=== PATIENT | male | born 1950 | race Caucasian/White ===

== ENCOUNTER → 2021-08-14 15:35 | Outpatient (CLI) | payer OTHER, SELFPAY ==
[2021-08-14 16:19] LABS: COVID19 -Nasal RAPID POSITIVE (Negative)
== END ==
PROVIDERS: Referring Provider Nurse Practitioner Critical Care Medicine; Visit Provider Nurse Practitioner Critical Care Medicine
DX: Z20.822 Contact with and (suspected) exposure to COVID-19 (principal)
CPT/HCPCS: 87635

== ENCOUNTER 2021-09-29 10:30 | Outpatient (RCR) | payer OTHER, SELFPAY ==
--- NOTE | 2021-09-14 16:32 | PT.OIE ---
Current Diagnoses Other abnormalities of gait and mobility (09/14/21) Nondisplaced osteochondral fracture of right patella, sequela (09/14/21) History of falling (09/14/21) Visit Care Team Role Provider Type Rafael Conde MD Family Provider Non-Staff Primary Care Provider Specialty: Internal Medicine Address: [address] [place] [address], [id number] Email: Obie Hercules MD Attending Provider Physician Referring Provider Specialty: Orthopedic Surgery Address: [address] [place] [address], [id number] Email: [email or web address] [facility] Initial Evaluation PT-OP-A Visit Information Start: 09/13/21 15:34 Freq: Status: Active Protocol: Document 09/14/21 10:30 AMB (Rec: 09/14/21 16:00 AMB [id number]) Out-Patient Physical Therapy Visit Information Visit Information Visit Type Initial Evaluation Visit Start Time 10:30 Visit Stop Time 11:15 Total Visit Minutes 45 Visit Number 1 PT-OP-B Current Condition Start: 09/13/21 15:34 Freq: Status: Active Protocol: Document 09/14/21 10:30 AMB (Rec: 09/14/21 10:43 AMB [id number]) Current Condition History of Current Condition Onset Date June Current Complaints R knee pain History of Current Condition Fractured patella in June in a fall in the garage, even before than was having difficulty with walking and with stairs. 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 Never actually fell because of the pain pre fracture but couldn't do stairs because the knee wasn't dependable. Right now doesn't have stairs, moving into another house in 3 weeks that will have stairs but can go up and down with step to gait and a railing per his report. Swelling is worse in the R leg. 1 fall in the last 6 months. Fearful of falling, not spinning but feels as if he could fall. Does having tingling in bilateral feet. Reports shortness of breath. Treatment Goals Patient/Caregiver Goals Would like to be able to get into a boat and go fishing, walk more (SOB limits), ability to walk on uneven terrain Prior Functional Status Baseline Function- ADL's Modified Independent Baseline Function- Mobility Modified Independent Current Functional Impairments (Reported) Functional Limitations- ADL's Unable to do stairs, walk for more than a couple minutes, difficulty with balance Personal Factors Other Personal Factors That May Effect Bilateral RAIZA, liver disease Therapy/Recovery with ascites and swelling in right leg?, hx polio as a child, shortness of breath PT-OP-C Subjective Start: 09/13/21 15:34 Freq: Status: Active Protocol: Document 09/14/21 10:30 AMB (Rec: 09/14/21 16:19 AMB [id number]) Patient Questionnaires Lower Extremity Functional Scale LEFS Score 37 LEFS Impairment 40 to 59% Impaired (Score 32- 47) OP-PT Pain Assessment Comments Pain Comments 5/10 anterior R knee just underneath patella PT-OP-D Balance Start: 09/13/21 15:34 Freq: Status: Active Protocol: Document 09/14/21 10:30 AMB (Rec: 09/14/21 16:19 AMB [id number]) Balance Tests mCTSIB mCTSIB Position 1 30 sec mCTSIB Position 2 increased ankle sway but no LOB mCTSIB Position 3 increased ankle sway but no LOB mCTSIB Position 4 increased ankle/hip sway PT-OP-G Mobility & Gait Start: 09/13/21 15:34 Freq: Status: Active Protocol: Document 09/14/21 10:30 AMB (Rec: 09/14/21 16:32 AMB [id number]) OP Gait Assessment Comments Gait Comments Pt ambulates without AD with antalgic gait, tends to avoid knee flexion and toe off on the right. PT-OP-J Posture/Palpation/Skin Start: 09/13/21 15:34 Freq: Status: Active Protocol: Document 09/14/21 10:30 AMB (Rec: 09/14/21 16:19 AMB [id number]) Palpation Assessment Location One Palpation Location R knee Palpation Findings Edema Palpation Details Denies tenderness with palpation over patella or popliteal fossa, no pitting edema, but skin tight with swelling R>L LE PT-OP-K Range of Motion Start: 09/13/21 15:34 Freq: Status: Active Protocol: Document 09/14/21 10:30 AMB (Rec: 09/14/21 16:19 AMB [id number]) Knee Goniometric Range of Motion Knee Right Patient Position Supine Flexion Passive (degrees) 110 Extension Active (degrees) 5 PT-OP-M Strength Start: 09/13/21 15:34 Freq: Status: Active Protocol: Document 09/14/21 10:30 AMB (Rec: 09/14/21 16:19 AMB [id number]) Hip Strength Hip Manual Muscle Testing Right Flexion (L2) 4 Good Extension (S1) 4 Good Abduction 4 Good Left Flexion (L2) 4+ Good+ Extension (S1) 4+ Good+ Abduction 4+ Good+ Knee Strength Knee Manual Muscle Testing Right Flexion (S2) 4- Good- Left Flexion (S2) 4+ Good+ Extension (L3) 4+ Good+ Ankle/Foot Strength Ankle and Foot Manual Muscle Testing Right Dorsiflexion (L4) 4 Good Plantarflexion (S1) 4 Good Left Dorsiflexion (L4) 4 Good Plantarflexion (S1) 4 Good PT-OP-Q Treatments Start: 09/13/21 15:34 Freq: Status: Active Protocol: Document 09/14/21 10:30 AMB (Rec: 09/14/21 16:21 AMB [id number]) Therapeutic Exercises Supine Exercises SLR Side right Reps/Minutes 2x10 Comments HEP Standing Exercises wall squat Comments even very small did increase R knee pain Neuro Re-Education Treatment Balance Activities 1 Comments NBOS EC working on really feeling feet PT-OP-T Assessment and Plan Start: 09/13/21 15:34 Freq: Status: Active Protocol: Document 09/14/21 10:30 AMB (Rec: 09/14/21 16:30 AMB [id number]) Physical Therapy Assessment Rehab Potential Rehabilitation Potential Good Evaluation Complexity Number of Personal Factors/Comorbidities 3 or More Number of Body Systems Impaired 4 or More Clinical Presentation at Evaluation Evolving Impairments Impairments Activity Tolerance,Edema, Functional Activities,Gait, Pain,ROM,Strength Goals Three Impairment HEP Short Term Goal (STG) Federico will be independent with both a land and aquatic HEP. STG Duration 4 weeks Two Impairment Pain Short Term Goal (STG) Federico will ascend 1 flight of stairs with a railing without knee pain or a feeling of the knee giving way. STG Duration 4 weeks One Impairment Balance Short Term Goal (STG) Federico will balance on foam with eyes closed without fear of falling. STG Duration 4 weeks Correction Goal (LTG) Federico will ambulate over grass/ grass for 2 minutes without fear of falling. LTG Duration 8 weeks Assessment Summary Assessment Federico attends physical therapy 2 + months s/p R patellar fracture. His medical comorbities make his physical therapy case more complex. He has swelling in his legs and tingling in his feet that impair his balance. He has difficulty with walking due to shortness of breath from advanced liver disease. He was unable to ascend stairs normally even before his fracture due to weakness in the right leg. He will benefit from physical therapy to improve his right leg strength, manage his pain, and decrease his fall risk. His high copay will likely be a barrier for him. Physical Therapy Plan Frequency and Duration Frequency of Treatment 2x/Week Duration of Treatment 8 weeks Plan of Care Start Date 09/14/21 Plan of Care End Date 11/09/21 Therapeutic Interventions Therapeutic Interventions Aquatic Therapy,Balance Training,Gait Training,Home Exercise Program,Lymphedema Management,Manual Therapy, Neuromuscular Re-education, Self-Care/Home Management, Therapeutic Activities, Therapeutic Exercises Modalities Cold Pack/Ice Massage,Electric Stimulation,Hot Packs Next Visit Focus/Plan Next Note Type Treatment Note Next Visit Plan Begin instruction in HEP
--- NOTE | 2021-09-14 16:33 | PT.OPPOC ---
Physical, Occupational & Speech Therapy At [facility] Current Diagnoses Other abnormalities of gait and mobility (09/14/21) Nondisplaced osteochondral fracture of right patella, sequela (09/14/21) History of falling (09/14/21) Visit Care Team Role Provider Type Rafael Conde MD Family Provider Non-Staff Primary Care Provider Specialty: Internal Medicine Address: [address] [place] [address], [id number] Email: Obie Hercules MD Attending Provider Physician Referring Provider Specialty: Orthopedic Surgery Address: [address] [place] [address], [address] Email: [email or web address] Plan Of Care PT-OP-T Assessment and Plan Start: 09/13/21 15:34 Freq: Status: Active Protocol: Document 09/14/21 10:30 AMB (Rec: 09/14/21 16:30 [facility] [id number]) Physical Therapy Assessment Rehab Potential Rehabilitation Potential Good Evaluation Complexity Number of Personal Factors/Comorbidities 3 or More Number of Body Systems Impaired 4 or More Clinical Presentation at Evaluation Evolving Impairments Impairments Activity Tolerance,Edema, Functional Activities,Gait, Pain,ROM,Strength Goals Three Impairment HEP Short Term Goal (STG) Federico will be independent with both a land and aquatic HEP. STG Duration 4 weeks Two Impairment Pain Short Term Goal (STG) Federico will ascend 1 flight of stairs with a railing without knee pain or a feeling of the knee giving way. STG Duration 4 weeks One Impairment Balance Short Term Goal (STG) Federico will balance on foam with eyes closed without fear of falling. STG Duration 4 weeks [facility] Goal (LTG) Federico will ambulate over grass/ grass for 2 minutes without fear of falling. LTG Duration 8 weeks Assessment Summary Assessment Federico attends physical therapy 2 + months s/p R patellar fracture. His medical comorbities make his physical therapy case more complex. He has swelling in his legs and tingling in his feet that impair his balance. He has difficulty with walking due to shortness of breath from advanced liver disease. He was unable to ascend stairs normally even before his fracture due to weakness in the right leg. He will benefit from physical therapy to improve his right leg strength, manage his pain, and decrease his fall risk. His high copay will likely be a barrier for him. Physical Therapy Plan Frequency and Duration Frequency of Treatment 2x/Week Duration of Treatment 8 weeks Plan of Care Start Date 09/14/21 Plan of Care End Date 11/09/21 Therapeutic Interventions Therapeutic Interventions Aquatic Therapy,Balance Training,Gait Training,Home Exercise Program,Lymphedema Management,Manual Therapy, Neuromuscular Re-education, Self-Care/Home Management, Therapeutic Activities, Therapeutic Exercises Modalities Cold Pack/Ice Massage,Electric Stimulation,Hot Packs Next Visit Focus/Plan Next Note Type Treatment Note Next Visit Plan Begin instruction in HEP Plan of Care Dates Plan of Care Start Date 09/14/21 Plan of Care End Date 11/09/21 Electronically Signed by: Keke Frederick, PT 09/14/21 [id number] Please Sign and Return: I have reviewed this Plan of Care and certify that the skilled therapy services above are required to meet the patient?s needs. Physician Signature Date Printed Name and Credentials Clinical Instructor Signature Printed Name and Credentials
--- NOTE | 2021-09-20 14:09 | PT.OTN ---
Current Diagnoses Other abnormalities of gait and mobility (09/20/21) Nondisplaced osteochondral fracture of right patella, sequela (09/20/21) History of falling (09/20/21) Physical Therapy Treatment Note PT-OP-A Visit Information Start: 09/13/21 15:34 Freq: Status: Active Protocol: Document 09/20/21 10:30 AMB (Rec: 09/20/21 11:17 AMB [id number]) Out-Patient Physical Therapy Visit Information Visit Information Visit Type Treatment Note Visit Start Time 10:30 Visit Stop Time 11:15 Total Visit Minutes 45 Visit Number 2 PT-OP-B Current Condition Start: 09/13/21 15:34 Freq: Status: Active Protocol: Document 09/14/21 10:30 AMB (Rec: 09/14/21 10:43 AMB [id number]) Current Condition History of Current Condition Onset Date June Current Complaints R knee pain History of Current Condition Fractured patella in June in a fall in the garage, even before than was having difficulty with walking and with stairs. 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 Never actually fell because of the pain pre fracture but couldn't do stairs because the knee wasn't dependable. Right now doesn't have stairs, moving into another house in 3 weeks that will have stairs but can go up and down with step to gait and a railing per his report. Swelling is worse in the R leg. 1 fall in the last 6 months. Fearful of falling, not spinning but feels as if he could fall. Does having tingling in bilateral feet. Reports shortness of breath. Treatment Goals Patient/Caregiver Goals Would like to be able to get into a boat and go fishing, walk more (SOB limits), ability to walk on uneven terrain Prior Functional Status Baseline Function- ADL's Modified Independent Baseline Function- Mobility Modified Independent Current Functional Impairments (Reported) Functional Limitations- ADL's Unable to do stairs, walk for more than a couple minutes, difficulty with balance Personal Factors Other Personal Factors That May Effect Bilateral RAIZA, liver disease Therapy/Recovery with ascites and swelling in right leg?, hx polio as a child, shortness of breath PT-OP-C Subjective Start: 09/13/21 15:34 Freq: Status: Active Protocol: Document 09/20/21 10:30 AMB (Rec: 09/20/21 14:09 AMB [id number]) OP-PT Subjective Patient Comments Patient Comments Pt states leg pain is better since he has stopped drinking as much water. PT-OP-D Balance Start: 09/13/21 15:34 Freq: Status: Active Protocol: Document 09/14/21 10:30 AMB (Rec: 09/14/21 16:19 AMB [id number]) Balance Tests mCTSIB mCTSIB Position 1 30 sec mCTSIB Position 2 increased ankle sway but no LOB mCTSIB Position 3 increased ankle sway but no LOB mCTSIB Position 4 increased ankle/hip sway PT-OP-G Mobility & Gait Start: 09/13/21 15:34 Freq: Status: Active Protocol: Document 09/14/21 10:30 AMB (Rec: 09/14/21 16:32 AMB [id number]) OP Gait Assessment Comments Gait Comments Pt ambulates without AD with antalgic gait, tends to avoid knee flexion and toe off on the right. PT-OP-J Posture/Palpation/Skin Start: 09/13/21 15:34 Freq: Status: Active Protocol: Document 09/14/21 10:30 AMB (Rec: 09/14/21 16:19 AMB [id number]) Palpation Assessment Location One Palpation Location R knee Palpation Findings Edema Palpation Details Denies tenderness with palpation over patella or popliteal fossa, no pitting edema, but skin tight with swelling R>L LE PT-OP-K Range of Motion Start: 09/13/21 15:34 Freq: Status: Active Protocol: Document 09/14/21 10:30 AMB (Rec: 09/14/21 16:19 AMB [id number]) Knee Goniometric Range of Motion Knee Right Patient Position Supine Flexion Passive (degrees) 110 Extension Active (degrees) 5 PT-OP-M Strength Start: 09/13/21 15:34 Freq: Status: Active Protocol: Document 09/14/21 10:30 AMB (Rec: 09/14/21 16:19 AMB [id number]) Hip Strength Hip Manual Muscle Testing Right Flexion (L2) 4 Good Extension (S1) 4 Good Abduction 4 Good Left Flexion (L2) 4+ Good+ Extension (S1) 4+ Good+ Abduction 4+ Good+ Knee Strength Knee Manual Muscle Testing Right Flexion (S2) 4- Good- Left Flexion (S2) 4+ Good+ Extension (L3) 4+ Good+ Ankle/Foot Strength Ankle and Foot Manual Muscle Testing Right Dorsiflexion (L4) 4 Good Plantarflexion (S1) 4 Good Left Dorsiflexion (L4) 4 Good Plantarflexion (S1) 4 Good PT-OP-Q Treatments Start: 09/13/21 15:34 Freq: Status: Active Protocol: Document 09/20/21 10:30 AMB (Rec: 09/20/21 14:08 AMB [id number]) Cardio Equipment Recumbent Elliptical (Biodex) Duration (Minutes) 6 Resistance 4 Other UE/LE Therapeutic Exercises Supine Exercises SLR Side right Reps/Minutes 2x10 Comments HEP Sitting Exercises TKE Reps/Minutes #2 t band Comments 2x10 Standing Exercises sidestepping Reps/Minutes 10'x4 Comments #2 t band in mini squat calf stretch Reps/Minutes 30x2 Comments on stair wall squat Reps/Minutes 5x10 Comments better today- small ROM HEP PT-OP-T Assessment and Plan Start: 09/13/21 15:34 Freq: Status: Active Protocol: Document 09/20/21 10:30 AMB (Rec: 09/20/21 13:02 AMB [id number]) Physical Therapy Assessment Assessment Summary Assessment Federico tolerated exercises well today but will need to follow up on if he is sore afterwards . Physical Therapy Plan Next Visit Focus/Plan Next Note Type Treatment Note Next Visit Plan Continue HEP, consider aquatics.
--- NOTE | 2021-09-22 12:08 | PT.OTN ---
Current Diagnoses Other abnormalities of gait and mobility (09/22/21) Nondisplaced osteochondral fracture of right patella, sequela (09/22/21) History of falling (09/22/21) Physical Therapy Treatment Note PT-OP-A Visit Information Start: 09/13/21 15:34 Freq: Status: Active Protocol: Document 09/22/21 10:31 AMB (Rec: 09/22/21 11:10 AMB [id number]) Out-Patient Physical Therapy Visit Information Visit Information Visit Type Treatment Note Visit Start Time 10:30 Visit Stop Time 11:15 Total Visit Minutes 45 Visit Number 3 PT-OP-B Current Condition Start: 09/13/21 15:34 Freq: Status: Active Protocol: Document 09/14/21 10:30 AMB (Rec: 09/14/21 10:43 AMB [id number]) Current Condition History of Current Condition Onset Date June Current Complaints R knee pain History of Current Condition Fractured patella in June in a fall in the garage, even before than was having difficulty with walking and with stairs. 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 Never actually fell because of the pain pre fracture but couldn't do stairs because the knee wasn't dependable. Right now doesn't have stairs, moving into another house in 3 weeks that will have stairs but can go up and down with step to gait and a railing per his report. Swelling is worse in the R leg. 1 fall in the last 6 months. Fearful of falling, not spinning but feels as if he could fall. Does having tingling in bilateral feet. Reports shortness of breath. Treatment Goals Patient/Caregiver Goals Would like to be able to get into a boat and go fishing, walk more (SOB limits), ability to walk on uneven terrain Prior Functional Status Baseline Function- ADL's Modified Independent Baseline Function- Mobility Modified Independent Current Functional Impairments (Reported) Functional Limitations- ADL's Unable to do stairs, walk for more than a couple minutes, difficulty with balance Personal Factors Other Personal Factors That May Effect Bilateral RAIZA, liver disease Therapy/Recovery with ascites and swelling in right leg?, hx polio as a child, shortness of breath PT-OP-C Subjective Start: 09/13/21 15:34 Freq: Status: Active Protocol: Document 09/22/21 10:31 AMB (Rec: 09/22/21 11:10 AMB [id number]) OP-PT Subjective Patient Comments Patient Comments Pt states he does usually take advil in the morning but didn 't this day. PT-OP-D Balance Start: 09/13/21 15:34 Freq: Status: Active Protocol: Document 09/14/21 10:30 AMB (Rec: 09/14/21 16:19 AMB [id number]) Balance Tests mCTSIB mCTSIB Position 1 30 sec mCTSIB Position 2 increased ankle sway but no LOB mCTSIB Position 3 increased ankle sway but no LOB mCTSIB Position 4 increased ankle/hip sway PT-OP-G Mobility & Gait Start: 09/13/21 15:34 Freq: Status: Active Protocol: Document 09/14/21 10:30 AMB (Rec: 09/14/21 16:32 AMB [id number]) OP Gait Assessment Comments Gait Comments Pt ambulates without AD with antalgic gait, tends to avoid knee flexion and toe off on the right. PT-OP-J Posture/Palpation/Skin Start: 09/13/21 15:34 Freq: Status: Active Protocol: Document 09/14/21 10:30 AMB (Rec: 09/14/21 16:19 AMB [id number]) Palpation Assessment Location One Palpation Location R knee Palpation Findings Edema Palpation Details Denies tenderness with palpation over patella or popliteal fossa, no pitting edema, but skin tight with swelling R>L LE PT-OP-K Range of Motion Start: 09/13/21 15:34 Freq: Status: Active Protocol: Document 09/14/21 10:30 AMB (Rec: 09/14/21 16:19 AMB [id number]) Knee Goniometric Range of Motion Knee Right Patient Position Supine Flexion Passive (degrees) 110 Extension Active (degrees) 5 PT-OP-M Strength Start: 09/13/21 15:34 Freq: Status: Active Protocol: Document 09/14/21 10:30 AMB (Rec: 09/14/21 16:19 AMB [id number]) Hip Strength Hip Manual Muscle Testing Right Flexion (L2) 4 Good Extension (S1) 4 Good Abduction 4 Good Left Flexion (L2) 4+ Good+ Extension (S1) 4+ Good+ Abduction 4+ Good+ Knee Strength Knee Manual Muscle Testing Right Flexion (S2) 4- Good- Left Flexion (S2) 4+ Good+ Extension (L3) 4+ Good+ Ankle/Foot Strength Ankle and Foot Manual Muscle Testing Right Dorsiflexion (L4) 4 Good Plantarflexion (S1) 4 Good Left Dorsiflexion (L4) 4 Good Plantarflexion (S1) 4 Good PT-OP-Q Treatments Start: 09/13/21 15:34 Freq: Status: Active Protocol: Document 09/22/21 10:31 AMB (Rec: 09/22/21 11:10 AMB [id number]) Cardio Equipment Recumbent Bicycle Duration (Minutes) 5 Resistance 4 Gym Equipment Shuttle Recovery Unilateral Squats Details 37 Reps/Time 2x10 Bilateral Squats Details 50 Reps/Time 2x10 Therapeutic Exercises Supine Exercises bridge Reps/Minutes 2x10 SLR Side right Reps/Minutes 2x10 Comments HEP cued TA Sidelying Exercises 1 Sidelying Exercise Name abduction slr Reps/Minutes 10 Standing Exercises calf stretch Reps/Minutes 30x2 Comments on stair wall squat Reps/Minutes 5x10 Comments better today- small ROM HEP Gait Training Gait Activity SPC training Comments in L UE- pt had been using in R; added in hurdles PT-OP-T Assessment and Plan Start: 09/13/21 15:34 Freq: Status: Active Protocol: Document 09/22/21 10:31 AMB (Rec: 09/22/21 11:10 AMB [id number]) Physical Therapy Assessment Assessment Summary Assessment Denies soreness after last visit, but today is noticing a little bit. Denies any recent near falls.Did fatigue quickly with shuttle recovery, discussed cane usage, and much better with SPC in left hand. Physical Therapy Plan Next Visit Focus/Plan Next Note Type Treatment Note Next Visit Plan Continue quad strengthening, balance training
--- NOTE | 2021-09-29 13:24 | PT.OTN ---
Current Diagnoses Other abnormalities of gait and mobility (09/29/21) Nondisplaced osteochondral fracture of right patella, sequela (09/29/21) History of falling (09/29/21) Physical Therapy Treatment Note PT-OP-A Visit Information Start: 09/13/21 15:34 Freq: Status: Active Protocol: Document 09/29/21 10:30 AMB (Rec: 09/29/21 11:19 AMB [id number]) Out-Patient Physical Therapy Visit Information Visit Information Visit Type Treatment Note Visit Start Time 10:30 Visit Stop Time 11:15 Total Visit Minutes 45 Visit Number 4 PT-OP-B Current Condition Start: 09/13/21 15:34 Freq: Status: Active Protocol: Document 09/14/21 10:30 AMB (Rec: 09/14/21 10:43 AMB [id number]) Current Condition History of Current Condition Onset Date June Current Complaints R knee pain History of Current Condition Fractured patella in June in a fall in the garage, even before than was having difficulty with walking and with stairs. 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 Never actually fell because of the pain pre fracture but couldn't do stairs because the knee wasn't dependable. Right now doesn't have stairs, moving into another house in 3 weeks that will have stairs but can go up and down with step to gait and a railing per his report. Swelling is worse in the R leg. 1 fall in the last 6 months. Fearful of falling, not spinning but feels as if he could fall. Does having tingling in bilateral feet. Reports shortness of breath. Treatment Goals Patient/Caregiver Goals Would like to be able to get into a boat and go fishing, walk more (SOB limits), ability to walk on uneven terrain Prior Functional Status Baseline Function- ADL's Modified Independent Baseline Function- Mobility Modified Independent Current Functional Impairments (Reported) Functional Limitations- ADL's Unable to do stairs, walk for more than a couple minutes, difficulty with balance Personal Factors Other Personal Factors That May Effect Bilateral RAIZA, liver disease Therapy/Recovery with ascites and swelling in right leg?, hx polio as a child, shortness of breath PT-OP-C Subjective Start: 09/13/21 15:34 Freq: Status: Active Protocol: Document 09/29/21 10:30 AMB (Rec: 09/29/21 11:19 AMB [id number]) OP-PT Subjective Patient Comments Patient Comments Swelling has been worse this last week, seeing MD about it. Continues taking advil. PT-OP-D Balance Start: 09/13/21 15:34 Freq: Status: Active Protocol: Document 09/14/21 10:30 AMB (Rec: 09/14/21 16:19 AMB [id number]) Balance Tests mCTSIB mCTSIB Position 1 30 sec mCTSIB Position 2 increased ankle sway but no LOB mCTSIB Position 3 increased ankle sway but no LOB mCTSIB Position 4 increased ankle/hip sway PT-OP-G Mobility & Gait Start: 09/13/21 15:34 Freq: Status: Active Protocol: Document 09/14/21 10:30 AMB (Rec: 09/14/21 16:32 AMB [id number]) OP Gait Assessment Comments Gait Comments Pt ambulates without AD with antalgic gait, tends to avoid knee flexion and toe off on the right. PT-OP-J Posture/Palpation/Skin Start: 09/13/21 15:34 Freq: Status: Active Protocol: Document 09/14/21 10:30 AMB (Rec: 09/14/21 16:19 AMB [id number]) Palpation Assessment Location One Palpation Location R knee Palpation Findings Edema Palpation Details Denies tenderness with palpation over patella or popliteal fossa, no pitting edema, but skin tight with swelling R>L LE PT-OP-K Range of Motion Start: 09/13/21 15:34 Freq: Status: Active Protocol: Document 09/14/21 10:30 AMB (Rec: 09/14/21 16:19 AMB [id number]) Knee Goniometric Range of Motion Knee Right Patient Position Supine Flexion Passive (degrees) 110 Extension Active (degrees) 5 PT-OP-M Strength Start: 09/13/21 15:34 Freq: Status: Active Protocol: Document 09/14/21 10:30 AMB (Rec: 09/14/21 16:19 AMB [id number]) Hip Strength Hip Manual Muscle Testing Right Flexion (L2) 4 Good Extension (S1) 4 Good Abduction 4 Good Left Flexion (L2) 4+ Good+ Extension (S1) 4+ Good+ Abduction 4+ Good+ Knee Strength Knee Manual Muscle Testing Right Flexion (S2) 4- Good- Left Flexion (S2) 4+ Good+ Extension (L3) 4+ Good+ Ankle/Foot Strength Ankle and Foot Manual Muscle Testing Right Dorsiflexion (L4) 4 Good Plantarflexion (S1) 4 Good Left Dorsiflexion (L4) 4 Good Plantarflexion (S1) 4 Good PT-OP-Q Treatments Start: 09/13/21 15:34 Freq: Status: Active Protocol: Document 09/29/21 10:30 AMB (Rec: 09/29/21 11:19 AMB [id number]) Gym Equipment Shuttle Recovery Bilateral Squats Details 62 Reps/Time 2x10 Therapeutic Exercises Supine Exercises supine hip ER Resistance #2 t band Reps/Minutes 2x10 bridge Reps/Minutes 2x10 SLR Side right Reps/Minutes 2x10 Comments HEP cued TA Sidelying Exercises clam Reps/Minutes 2x10 Comments challenging 1 Sidelying Exercise Name abduction slr Reps/Minutes 2x10 Neuro Re-Education Treatment Balance Activities 2 Details partial stride stance Reps/Duration 2x10 Comments Eo/EC 1 Comments NBOS EC working on really feeling feet PT-OP-T Assessment and Plan Start: 09/13/21 15:34 Freq: Status: Active Protocol: Document 09/29/21 13:20 AMB (Rec: 09/29/21 13:23 AMB [id number]) Physical Therapy Assessment Assessment Summary Assessment Federico was very weak with his hip external rotators, forgot a bit about the discussion of the cane. They will be moving soon, so discussed taking time with moving boxes, etc. Did have pitting edema in lower leg today, encouraged pt to discuss compression with MD. Physical Therapy Plan Next Visit Focus/Plan Next Note Type Treatment Note Next Visit Plan Continue quad strengthening, balance training, review clam/ supine clam
--- NOTE | 2021-11-30 10:49 | PT.OPDS ---
Current Diagnoses Other abnormalities of gait and mobility (09/29/21) Nondisplaced osteochondral fracture of right patella, sequela (09/29/21) History of falling (09/29/21) Visit Care Team Role Provider Type Rafael Conde MD Family Provider Non-Staff Primary Care Provider Specialty: Internal Medicine Address: [address] [place] [address], [id number] Email: Obie Hercules MD Attending Provider Physician Referring Provider Specialty: Orthopedics Orthopedic Surgery Address: [address] [place] [address], [id number] Email: [email or web address] Visit Number Visit Number 4 Discharge Summary PT-OP-B Current Condition Start: 09/13/21 15:34 Freq: Status: Active Protocol: Document 09/14/21 10:30 AMB (Rec: 09/14/21 10:43 AMB [id number]) Current Condition History of Current Condition Onset Date June Current Complaints R knee pain History of Current Condition Fractured patella in June in a fall in the garage, even before than was having difficulty with walking and with stairs. 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 Never actually fell because of the pain pre fracture but couldn't do stairs because the knee wasn't dependable. Right now doesn't have stairs, moving into another house in 3 weeks that will have stairs but can go up and down with step to gait and a railing per his report. Swelling is worse in the R leg. 1 fall in the last 6 months. Fearful of falling, not spinning but feels as if he could fall. Does having tingling in bilateral feet. Reports shortness of breath. Treatment Goals Patient/Caregiver Goals Would like to be able to get into a boat and go fishing, walk more (SOB limits), ability to walk on uneven terrain Prior Functional Status Baseline Function- ADL's Modified Independent Baseline Function- Mobility Modified Independent Current Functional Impairments (Reported) Functional Limitations- ADL's Unable to do stairs, walk for more than a couple minutes, difficulty with balance Personal Factors Other Personal Factors That May Effect Bilateral RAIZA, liver disease Therapy/Recovery with ascites and swelling in right leg?, hx polio as a child, shortness of breath PT-OP-C Subjective Start: 09/13/21 15:34 Freq: Status: Active Protocol: Document 09/29/21 10:30 AMB (Rec: 09/29/21 11:19 AMB [id number]) OP-PT Subjective Patient Comments Patient Comments Swelling has been worse this last week, seeing MD about it. Continues taking advil. PT-OP-D Balance Start: 09/13/21 15:34 Freq: Status: Active Protocol: Document 09/14/21 10:30 AMB (Rec: 09/14/21 16:19 AMB [id number]) Balance Tests mCTSIB mCTSIB Position 1 30 sec mCTSIB Position 2 increased ankle sway but no LOB mCTSIB Position 3 increased ankle sway but no LOB mCTSIB Position 4 increased ankle/hip sway PT-OP-G Mobility & Gait Start: 09/13/21 15:34 Freq: Status: Active Protocol: Document 09/14/21 10:30 AMB (Rec: 09/14/21 16:32 AMB [id number]) OP Gait Assessment Comments Gait Comments Pt ambulates without AD with antalgic gait, tends to avoid knee flexion and toe off on the right. PT-OP-J Posture/Palpation/Skin Start: 09/13/21 15:34 Freq: Status: Active Protocol: Document 09/14/21 10:30 AMB (Rec: 09/14/21 16:19 AMB [id number]) Palpation Assessment Location One Palpation Location R knee Palpation Findings Edema Palpation Details Denies tenderness with palpation over patella or popliteal fossa, no pitting edema, but skin tight with swelling R>L LE PT-OP-K Range of Motion Start: 09/13/21 15:34 Freq: Status: Active Protocol: Document 09/14/21 10:30 AMB (Rec: 09/14/21 16:19 AMB [id number]) Knee Goniometric Range of Motion Knee Right Patient Position Supine Flexion Passive (degrees) 110 Extension Active (degrees) 5 PT-OP-M Strength Start: 09/13/21 15:34 Freq: Status: Active Protocol: Document 09/14/21 10:30 AMB (Rec: 09/14/21 16:19 AMB [id number]) Hip Strength Hip Manual Muscle Testing Right Flexion (L2) 4 Good Extension (S1) 4 Good Abduction 4 Good Left Flexion (L2) 4+ Good+ Extension (S1) 4+ Good+ Abduction 4+ Good+ Knee Strength Knee Manual Muscle Testing Right Flexion (S2) 4- Good- Left Flexion (S2) 4+ Good+ Extension (L3) 4+ Good+ Ankle/Foot Strength Ankle and Foot Manual Muscle Testing Right Dorsiflexion (L4) 4 Good Plantarflexion (S1) 4 Good Left Dorsiflexion (L4) 4 Good Plantarflexion (S1) 4 Good PT-OP-T Assessment and Plan Start: 09/13/21 15:34 Freq: Status: Active Protocol: Document 11/30/21 10:48 AMB (Rec: 11/30/21 10:49 [facility] [id number]) Physical Therapy Assessment Goals Three Impairment HEP Short Term Goal (STG) Federico will be independent with both a land and aquatic HEP. STG Duration 4 weeks Two Impairment Pain Short Term Goal (STG) Federico will ascend 1 flight of stairs with a railing without knee pain or a feeling of the knee giving way. STG Duration 4 weeks One Impairment Balance Short Term Goal (STG) Federico will balance on foam with eyes closed without fear of falling. STG Duration 4 weeks [facility] Goal (LTG) Federico will ambulate over grass/ grass for 2 minutes without fear of falling. LTG Duration 8 weeks Assessment Summary Assessment Federico canceled all remaining appointments 2 months ago and has not called to reschedule, therefore he is discharged at this time. He continued to have the impairments outlined at eval at his last scheduled appointment.
== END 2021-12-02 08:14 ==
LOC: PHYS 10:30
PROVIDERS: Family Provider Internal Medicine; PCP Internal Medicine; Referring Provider Orthopaedic Surgery; Visit Provider Orthopaedic Surgery
DX: S82.01 Osteochondral fracture of patella (principal); Z91.81 History of falling; R26.89 Other abnormalities of gait and mobility
CPT/HCPCS: 97110; 97162

== ENCOUNTER → 2021-12-21 17:03 | Outpatient (CLI) | payer OTHER, SELFPAY ==
[2021-12-21 18:14] LABS: Add Manual Diff / Slide Review NO; Basophils Absolute Auto 0 /uL (0-100); Basophils Percent Auto 0.4 % (0-2); Eosinophils Absolute Auto 100 /uL (0-450); Eosinophils Percent Auto 2.4 % (2-4); Hematocrit 36.4 % (41-53); Hemoglobin 12.9 g/dL (13.5-17.5); Lymphocytes Absolute Auto 400 /uL (1100-4500); Lymphocytes Percent Auto 9.6 % (25-40); Mean Corpuscular HGB Conc 35.4 % (30-36); Mean Corpuscular Volume 98.8 fL (80-100); Monocytes Absolute Auto 400 /uL (0-900); Monocytes Percent Auto 8.2 % (3-14); Neutrophils Absolute Auto 3400 /uL (1500-7000); Neutrophils Percent Auto 79.4 % (50-75); Platelet Count 67 X10^3/uL (150-400); Red Blood Cell Count 3.68 X10^6/uL (4.5-5.9); Red Cell Distribution Width 14.1 % (11.6-14.8); White Blood Cell Count 4.3 X10^3/uL (4.5-11.0)
[2021-12-21 18:27] LABS: BUN Creatinine Ratio 23.3 (6-22); Blood Urea Nitrogen 20 mg/dL (9-20); Calcium 9.5 mg/dL (8.4-10.2); Carbon Dioxide 27 mmol/L (22-32); Chloride 109 mmol/L (98-107); Estimated Glomerular Filt Rate > 60 mL/min (>60); Glucose 116 mg/dL (80-110); HEMOLYSIS < 15 (0-50); Potassium 4.3 mmol/L (3.4-5.1); Sodium 141 mmol/L (137-145)
[2021-12-21 18:29] LABS: Hemoglobin A1C% w Est Avg Glu 4.8 % (4.0-6.0)
== END ==
PROVIDERS: Family Provider Internal Medicine; PCP Internal Medicine; Referring Provider Orthopaedic Surgery; Visit Provider Orthopaedic Surgery
DX: Z01.818 Encounter for other preprocedural examination (principal); R73.9 Hyperglycemia, unspecified; Z01.812 Encounter for preprocedural laboratory examination
CPT/HCPCS: 36415; 80048; 83036; 85025; 93005; 93010

== ENCOUNTER → 2022-02-15 09:39 | Outpatient (CLI) | payer OTHER, SELFPAY ==
[2022-02-15 11:09] LABS: Add Manual Diff / Slide Review NO; Basophils Absolute Auto 0 /uL (0-100); Basophils Percent Auto 0.4 % (0-2); Eosinophils Absolute Auto 100 /uL (0-450); Eosinophils Percent Auto 2.3 % (2-4); Hematocrit 34.4 % (41-53); Hemoglobin 12.3 g/dL (13.5-17.5); Lymphocytes Absolute Auto 400 /uL (1100-4500); Lymphocytes Percent Auto 9.3 % (25-40); Mean Corpuscular HGB Conc 35.8 % (30-36); Mean Corpuscular Hemoglobin 34.8 PG (26-34); Mean Corpuscular Volume 97.4 fL (80-100); Monocytes Absolute Auto 400 /uL (0-900); Monocytes Percent Auto 10.2 % (3-14); Neutrophils Absolute Auto 3100 /uL (1500-7000); Neutrophils Percent Auto 77.8 % (50-75); Platelet Count 68 X10^3/uL (150-400); Red Blood Cell Count 3.53 X10^6/uL (4.5-5.9); Red Cell Distribution Width 13.8 % (11.6-14.8)
== END ==
PROVIDERS: Family Provider Internal Medicine; PCP Internal Medicine; Referring Provider Orthopaedic Surgery; Visit Provider Orthopaedic Surgery
DX: D69.6 Thrombocytopenia, unspecified (principal); M25.561 Pain in right knee
CPT/HCPCS: 36415; 85025

== ENCOUNTER → 2022-02-20 08:55 | Outpatient (CLI) | payer OTHER, SELFPAY ==
[2022-02-20 10:06] LABS: COVID19 -Nasal RAPID Negative (Negative)
== END ==
PROVIDERS: Family Provider Internal Medicine; PCP Internal Medicine; Referring Provider Orthopaedic Surgery; Visit Provider Orthopaedic Surgery
DX: D69.6 Thrombocytopenia, unspecified (principal); Z20.822 Contact with and (suspected) exposure to COVID-19
CPT/HCPCS: 36415; 86850; 86900; 86901; 87635; C9803

== ENCOUNTER 2022-02-23 16:15 | Observation (INO) | payer OTHER, SELFPAY ==
[2022-01-31 07:42] VITALS: BMI 30.4
[2022-02-22] VITALS (18 sets, daily range): BP systolic 133–168; BP diastolic 61–85; PULSE 54–74; RESP 12–18; TEMP 35.9–37.3; O2SAT 96–100; BMI 30.4
--- NOTE | 2022-02-22 07:57 | SUR.PREOP ---
Addendum entered by Sandhya Gomez R.N. 02/22/22 09:15: 0905-1st unit plateletts infusing. Original Note: 02/22/2276-1756-pdvzzby arrived , verified name//procedures/md. Confirmed here early for blood transfussion. Lab called and notified for stat lab draws.
--- NOTE | 2022-02-22 08:34 | DI.RAD.S_ITS ---
PROCEDURE: XR KNEE RT 1TO2V INDICATIONS: post op total knee TECHNIQUE: 2 views of the knee were acquired. COMPARISON: None. FINDINGS: Bones: Total knee arthroplasty in good position no evidence of hardware failure. Postprocedural soft tissue air present. No evidence of complication. Soft tissues: No joint effusion. No suspicious soft tissue calcifications. IMPRESSION: Right total knee arthroplasty in good position Approved by: Brodie Lnidsey M.D. on 02/22/2022 at 17:40
[2022-02-22] MEDS: LACTATED RINGERS 1,000 ML 42 ML IV ×2 (08:38→16:35)
[2022-02-22] MEDS: SODIUM CHLORIDE 0.9% 1,000 ML 84 ML IV (08:46)
[2022-02-22] MEDS: ACETAMINOPHEN 325 MG TABLET 975 MG PO (09:00)
[2022-02-22] MEDS: CELECOXIB 200 MG CAPSULE PO (09:01)
[2022-02-22] MEDS: PREGABALIN 75 MG CAPSULE PO (09:01)
--- NOTE | 2022-02-22 10:12 | SUR.PREOP ---
02/22/22-1015-1st unit of plateletts infused w/out problem. vss. To lab for next available unit.
--- NOTE | 2022-02-22 10:27 | SUR.PREOP ---
Addendum entered by Sandhya Gomez R.N. 02/22/22 12:42: 1240-Patient moved to block room in preparation for Anesthesia to possibly due nerve block. Refused restroom. has call light. Reading book. maintained npo. Addendum entered by Sandhya Gomez R.N. 02/22/22 11:28: 1130-2nd unit of platelets completed w/out reaction. vss. iv converted to NS lock. comfortable . reading a book. call light at side. awaiting surgery. Addendum entered by Sandhya Gomez R.N. 02/22/22 10:43: 1035-vss. no reaction. rate increase via pump. Original Note: 02/22/2246-1539-shkodp unit of plateletts started
--- NOTE | 2022-02-22 13:49 | PM.PREOP ---
Pre-operative Note COVID-19 COVID-19 status: Negative Result date/Date tested (Pos, Neg/Pending): 02/20/22 Interval Note History & Physical reviewed/Exam performed by Physician: Yes Changes to H&P: No H&P completed within 30 days and has changed as indicated here:: The patient has received a platelet transfusion today in preparation for surgery.
[2022-02-22] MEDS: CEFAZOLIN 2 GM/20 ML SYRINGE IV (15:30)
[2022-02-22] MEDS: TRANEXAMIC ACID 1,000 MG VIAL 2000 MG INJ ×2 (15:35→16:41)
--- NOTE | 2022-02-22 16:03 | SUR.OPER ---
Supine on padded OR bed. Pillow under head, arms secured on padded armboards <90 degree abduction. Safety belt across torso. Non-operative leg secured with tape over blanket over lower leg. Operative leg secured in DeMayo/Heath/Nathe positioner. Foam padded brace at thigh of operative leg.
[2022-02-22] MEDS: MORPHINE 4 MG/ML INJ INJ (16:20)
[2022-02-22] MEDS: BUPIVACAINE LIPOSOME 266 MG/20 ML VIAL INJ (16:20)
[2022-02-22] MEDS: BUPIVACAINE 0.25% (PF) 60 ML, EPINEPHrine 0.3 MG INJ (16:20)
--- NOTE | 2022-02-22 16:50 | PM.OP.1 ---
Operative Date/Time/Diagnoses Date of procedure: 02/22/22 Time of procedure: 16:50 Pre-op diagnosis: Right knee osteoarthritis Post-op diagnosis: same Procedure & Clinicians Procedure: Right total knee replacement Same procedure as scheduled: Yes Indications: The patient has had progressively worsening right knee pain with radiographic changes consistent with arthritis. Non-operative management has failed and the patient has requested total knee replacement. The risks, benefits and alternatives to surgery were discussed with the patient prior to proceeding. Risks discussed included, but were not limited to, failure to relieve pain, stiffness, infection, nerve damage, deep venous thrombosis, pulmonary embolism, stroke, coma, heart attack, permanent paralysis and , as well as the potential need for eventual revision of the prosthetic. Surgeon: Obie Hercules Blood Donor Recruiter Supervisor: Tanner Cortez Click Yes if Unassisted: No Anesthesia Type: General, Spinal and Local Operative Notes Findings: Significant tricompartmental osteoarthritis, worst in the lateral compartment. Closure Type: primary Specimen(s): none sent Prosthetic devices, grafts, tissues, transplants, or devices: Implants used in this procedure were manufactured by the [employer] and [email or web address] and included the BCS II Journey total knee replacement with a size 7 right cobalt chromium femoral component, size 6 right non porous tibial base plate, 9 mm cross-linked polyethylene tibial insert and a 35 mm oval Wendy II patella. Applied: implant(s) Estimated Blood Loss (mL): 100 Blood products transfused: platelets (Transfused preoperatively) Tourniquet time (min): 56 Procedure in detail: The patient was seen in the pre-operative area, where the patient identified the right knee as the operative site and this was marked with my initials. The patient received pre-operative antibiotics, and was taken to the operating room and placed on the operative table in the supine position. After satisfactory anesthesia, a horse race timer out was performed. The right leg was encircled with a tourniquet about the proximal thigh, and the leg was prepared from the toes to the tourniquet with ChloroPrep in the usual fashion and draped through sterile drapes. The leg was elevated and exsanguinated with Eschmark bandage and the tourniquet inflated to 250 mmHg pressure. The knee was approached through an approximately 18 cm incision centered over the patella and carried into the knee through a medial parapatellar arthrotomy. The anterior osteophytes and soft tissues were removed. The rotational landmarks of Hickman's line and the transepicondylar axis were marked on the femur with electrocautery, and intramedullary guide holes for the femur and tibia were created. The distal femoral cut was made in 6 degrees of valgus using the intramedullary guide at the primary cut setting. The proximal tibial cut was then made using the intramedullary guide, taking 7 mm of bone off the less involved medial side. The extension gap was checked and the rotation of the femoral component confirmed with the gap balancing system. The anterior, posterior and chamfer cuts were then made. The posterior osteophytes and soft tissues were then removed. The posterior capsule was injected with part of a mixture of 60 ml 0.25% Marcaine mixed with 20 ml Exparel and 4 mg of morphine for post-operative pain control. The remainder of this mixture was injected into the capsule and subcutaneous tissues during cement curing. The tibia was prepared with the rotation set by an extra medullary guide. Trial tibial and femoral components were then placed and the intercondylar notch cut through the femoral trial. Range of motion was 0-135 degrees, with good stability throughout the range. The patella was then cut to accommodate the patellar prosthetic. A lateral release was performed due to residual lateral tilt. The trials were then removed, and the femoral hole plugged with a bone plug. The bone was prepared with pulsatile lavage, and dried with a sponge. Cement was applied and the final prosthetics placed. Excess cement was removed during and after cement curing. After confirming there was no extruded cement posteriorly, the final tibial insert was placed. The knee was copiously irrigated and the tourniquet deflated. Hemostasis was obtained. The capsule was closed with interrupted # 2 polyester suture. The subcutaneous layer was closed with 3-0 Vicryl, and the skin with a running 3-0 V-Lock suture and Dermabond. An Aquacel Ag dressing was applied and the patient was taken to recovery having tolerated the procedure well. Complications: none Post-operative Condition: stable Disposition: PACU Plan for aftercare: The patient will be maintained on a standard total knee replacement protocol with weight bearing as tolerated. The patient will receive aspirin and sequential compression devices for DVT prophylaxis. The patient will be discharged home when safe for the home environment.
--- NOTE | 2022-02-22 17:28 | SUR.PHASEI ---
Addendum entered by Mariluz Sullivan R.N. 02/22/22 18:48: 1846: Room ready. Report given to GERONIMO Narvaez using SBAR with time allowed for questions. Pt transferred to room 212 with all personal belongings, bilat hearing aids in, glasses on, has cellphone, clothing and book. Addendum entered by Mariluz Sullivan R.N. 02/22/22 18:01: 1800: Pt A&Ox4, report pain a 1/10 and tolerable, denies any nausea, dressing C\D\I and ready to transfer to room. Called to give report to receiving RN, room not available at this time. Will return call when room ready. Addendum entered by Mariluz Sullivan R.N. 02/22/22 17:37: 1737: xrays complete Original Note: 1720: Pt arrived to PACU 1726: Notified radiology of xray order.
[2022-02-22] MEDS: fentaNYL 100 MCG/2 ML INJ IV (17:41)
[2022-02-22] MEDS: OXYCODONE/ACETAMINOPHEN 5/325 TABLET 1 TAB PO (18:20)
[2022-02-22] MEDS: LACTATED RINGERS 1,000 ML 100 ML IV (19:47)
[2022-02-22] MEDS: IBUPROFEN 200 MG TABLET 400 MG PO (21:19)
[2022-02-22] MEDS: ASPIRIN EC 81 MG TABLET PO (21:19)
[2022-02-22] MEDS: DOCUSATE 100 MG CAPSULE PO (21:19)
[2022-02-22] MEDS: ACETAMINOPHEN 325 MG TABLET 650 MG PO (23:16)
[2022-02-23] MEDS: OXYCODONE IR 5 MG TABLET PO ×4 (03:14→23:49)
[2022-02-23] MEDS: ACETAMINOPHEN 325 MG TABLET 650 MG PO (05:14)
[2022-02-23 05:53] LABS: Hematocrit 29.7 % (41-53); Hemoglobin 10.5 g/dL (13.5-17.5)
[2022-02-23 06:00] VITALS: BP 127/62; PULSE 64; RESP 16; TEMP 37.6; O2SAT 98
[2022-02-23] MEDS: SODIUM CHLORIDE 0.9% FLUSH 10 ML IV ×3 (06:43→21:06)
--- NOTE | 2022-02-23 07:00 | P.DS_ITS ---
History of Present Illness History of Present Illness Date Patient Seen: 02/23/22 Time Patient Seen: 07:00 Chief complaint: RT TKA *OPB* Narrative: The history and physical is contained in the chart previously completed note. Please refer to that note for this information. Discharge Providers Provider Date of admission: February 22, 2022 Discharge Date: 02/23/22 Primary care physician: Rafael Conde MD Consults: 02/22/22 18:48 Consult to Discharge Planning Routine Comment: Consult to Physical Therapy Evaluate & Treat Comment: Physician Instructions: postop TKA protocol Discharge provider: Obie Hercules MD Summary Hospital Course Discharge Diagnosis: 1. Right knee osteoarthritis 2. Thrombocytopenia 3. Post hemorrhagic anemia Hospital Course: Patient was admitted to the hospital on February 22, 2022 and given a platelet transfusion in preparation for surgery due to his pre-existing thrombocytopenia. He underwent a right total knee replacement without complications and was comfortable on postoperative day 1 although he did have a moderate post hemorrhagic anemia. It is anticipated this will improve with time and normal diet. He is stable from the standpoint of his surgery and ready for discharge home. Status at Discharge Cognitive/behavioral status at discharge: at baseline, oriented Functional status at discharge: uses cane/walker Overall status at discharge: patient is progressing back to baseline Time Spent with Patient Time spent: Less than 30 minutes Exam Vital Signs (past 8 hours): - 02/23/22 06:00 Temperature 99.7 F H Pulse Rate 64 Respiratory Rate 16 Blood Pressure 127/62 Pulse Oximetry 98 Oxygen Flow Rate 1 Oxygen Delivery Method Room Air Oxygen Flow Rate 1 Narrative Exam Narrative: Right knee wound is dressed with no drainage on the bandage. Light touch and motion are intact in the right lower extremity. Calf is soft and nontender. Objective Labs Result Diagrams: 02/23/22 05:20 Labs: Laboratory Results - last 24 hr 02/22/22 02/23/22 08:21 05:20 Hgb 10.5 L Hct 29.7 L Blood Type O Positive [facility] Medical History (Updated 01/26/22 @ 17:02 by Liane Wallis PA-C) Bilateral cataracts COVID-19 virus infection (08/14/21) Depression Easy bruisability Edema Esophageal varices Hearing impaired Hepatitis History of drug abuse Liver cancer (2020) Liver cirrhosis MRSA (methicillin resistant Staphylococcus aureus) (~2016) Neurogenic bladder SKYLER (obstructive sleep apnea) Osteoarthritis Polio Right patella fracture (06/2021) Skin cancer Thrombocytopenia Surgical History (Updated 01/09/22 @ 11:39 by Bonnie Joyner RN) H/O vasectomy History of arthroplasty of both hips History of bilateral carpal tunnel release (1972) Hx of esophagogastroduodenoscopy (10/21/21) Hx of transurethral resection of prostate Social History household members: spouse Smoking Status: Former smoker alcohol intake: former Discharge Assessment & Plan Assessment and Plan Assessment: Stable postoperative day 1 status post right total knee replacement. He has good pain control. He is planning discharge home today. Plan of Treatment: Discharge to home with follow-up at my office in 10-14 days. Prescriptions have been called in for his oxycodone. He has been instructed in the use of low-dose aspirin for DVT prophylaxis which will be given to him at 1/2 the normal dose due to his thrombocytopenia. He has been instructed in the use of Tylenol for additional pain control. Discharge Plan Discharge Plan Patient Disposition: Home Discharge orders & Medications Discharge Orders: Discharge (Order); Ordered 02/23/22 Ordered By: Obie Hercules Prescriptions: New oxycodone 5 mg Tablet 5 mg PO Q4H PRN (Reason: Pain, Moderate (4-6)) Qty: 40 0RF acetaminophen 325 mg Tablet 650 mg PO Q6HR Qty: 100 0RF aspirin 81 mg Tablet,Delayed Release (Dr/Ec) 81 mg PO DAILY Qty: 40 0RF Continued ibuprofen [Advil] 200 mg Tablet 400 mg PO TID furosemide 20 mg Tablet 20 mg PO QAM magnesium amino acid chelate 100 mg Tablet 200 mg PO DAILY d-mannose 500 mg Capsule 2,000 mg PO QAM Follow up/Referrals: Rafael Conde MD [Primary Care Provider] - Obie Hercules MD [Physician] - 2 Weeks Diet/Activity/Treatments Diet: Diet as Tolerated and Regular Activity: You may bear weight as tolerated on your right leg. Cold/Heat Therapy: Apply ice to the right knee for 15 minutes every hour as needed for pain control. Skin/Wound/Dressing Care Report to your healthcare provider any signs of infection, such as:: chills, fever, night sweats, increased pain, unusual drainage and unusual redness Dressing: Please see written instructions on the use of the deeper dressing. You may remove the Vadim wrap in 3 days. Visit Report/Discharge Packet Instructions: DI for Knee Replacement Stand Alone Forms: Surgery Discharge Discharge Data Primary Care Provider: Rafael Conde Attending Provider: Obie Hercules Quality VTE Deep Vein Thrombosis/Pulmonary Embolism Present on Admission: No
[2022-02-23] MEDS: ASPIRIN EC 81 MG TABLET PO ×2 (08:38→21:05)
[2022-02-23] MEDS: DOCUSATE 100 MG CAPSULE PO ×2 (08:38→21:05)
[2022-02-23] MEDS: FUROSEMIDE 20 MG TABLET PO (08:38)
[2022-02-23] MEDS: IBUPROFEN 200 MG TABLET 400 MG PO ×3 (08:39→21:05)
--- NOTE | 2022-02-23 09:17 | CM.DANOTE ---
Initial DCP Assessment Note Pt is a 71 yo male, resident of [place], now POD#1 status post right total knee replacement by Dr Hercules PCP: Rafael Conde MD [facility] Reviewed chart, DC order from Ortho has already been initiated this morning. Patient anticipating going home today w/family to assist in his recovery. Pending PT eval, likely cg training this morning No needs expected from DC planning team although will remain available in case this changes today. BERNICE Nina Discharge Planning/Care Management CM Discharge Assessment Start: 02/23/22 09:12 Freq: Status: Active Protocol: Document 02/23/22 09:12 MILLER (Rec: 02/23/22 09:17 MILLER [id number]) Discharge Planning Assessment Assigned Clay Hoister BERNICE Bennett DPOA/Assigned Designee Name Jerri Wagner, spouse Contact Information [phone] Advance Directives? No: Have the form, not filled out History Provided By Patient,Medical Record Prior Living Arrangements House Household Members spouse Type of transporation used prior to Drives own vehicle admit Independent with ADL's Yes Is patient alert and oriented? Yes Barriers to Discharge No Comment Anticipat home w/spouse to assist in recovery Discharge Plan Home Transportation Arrangement Family Referrals Initiated None needed Additional Comment Will follow closely in case needs arise
[2022-02-23 10:13] VITALS: BP 131/70; PULSE 66; RESP 18; TEMP 37; O2SAT 98
--- NOTE | 2022-02-23 10:30 | PT.IIE ---
Current Diagnoses Thrombocytopenia, unspecified (02/22/22) Unilateral primary osteoarthritis, right knee (02/22/22) Surgery Performed Operation Date: 02/22/22 13:15 Actual Procedures p Total Knee Arthroplasty(Right) - Obie Hercules MD Surgical History (Last Updated 01/09/22 @ 11:39 by Bonnie Joyner RN) H/O vasectomy History of arthroplasty of both hips History of bilateral carpal tunnel release (1972) Hx of esophagogastroduodenoscopy (10/21/21) Hx of transurethral resection of prostate Medical History (Last Updated 01/26/22 @ 17:02 by Liane Wallis PA-C) Bilateral cataracts COVID-19 virus infection (08/14/21) Depression Easy bruisability Edema Esophageal varices Hearing impaired Hepatitis History of drug abuse Liver cancer (2020) Liver cirrhosis MRSA (methicillin resistant Staphylococcus aureus) (~2016) Neurogenic bladder SKYLER (obstructive sleep apnea) Osteoarthritis Polio Right patella fracture (06/2021) Skin cancer Thrombocytopenia Physical Therapy Inpatient Evaluation/Re-Eval M1 PT/OT-IP Prior Functional Status Start: 02/23/22 13:15 Freq: NEEDED Status: Active Protocol: Document 02/23/22 10:30 AB (Rec: 02/23/22 13:24 AB [email or web address]) Medical Review Prior Functional Status Medical History Reviewed Yes Communication able to make needs known; very TAZLINA Mobility and Gait pt stated that he is independent with all mobilities and ambulation without AD but occasionally uses a SPC for outdoor mobility Social History Household Members spouse Living Arrangements House Number of Floors (Floors) Two Floors Number of Stairs To Enter/Railing? pt stays on main level of the house 2 platform steps to enter the house Home Environment High Toilet,Walk in Shower Home Equipment Front Wheel Walker,Straight Cane,Grab Bars Near Toilet M2 PT-IP Current Condition Start: 02/23/22 13:15 Freq: NEEDED Status: Active Protocol: Document 02/23/22 10:30 AB (Rec: 02/23/22 13:24 AB [email or web address]) Physical Therapy Current Condition Current Condition Evaluation Date 02/23/22 Treatment Diagnosis s/p R TKA; difficulty in walking Onset Date 02/22/22 M3 PT-IP Subjective Start: 02/23/22 13:15 Freq: NEEDED Status: Active Protocol: Document 02/23/22 10:30 AB (Rec: 02/23/22 13:24 AB [email or web address]) Subjective Physical Therapy Visit Type Type Initial Evaluation Visit Start Time 10:30 Visit Stop Time 11:16 Total Visit Minutes 46 Number of CLINICAL AIDE Visits 0 Physical Therapy Visit Comments Patient Comments agreeable to do PT Therapy Pain Assessment Pain When Pain Assessed At Rest Pain Present Pain Present Pain Reported Location Rt knee Intensity 4 Scale Used Numeric (0 - 10) Pain Management Techniques Apply Cold,Distraction, Modification of Treatment,Re- positioning,Timing of Activity with Medications M4 PT-IP Mobility and Gait Start: 02/23/22 13:15 Freq: NEEDED Status: Active Protocol: Document 02/23/22 10:30 AB (Rec: 02/23/22 13:24 AB [id number]) PT-Bed Mobility Assessment Supine to Sit Supine to Sit Standby Assistance PT-Transfer Assessment Sit to and From Stand Sit to and from Stand Moderate Assistance,1 Person Assistance,Use of Upper Extremities Equipment Transfer Assistive Device Gait Belt,Front Wheeled Walker Orthotic/Prosthetic Devices or Brace: No Transfers Transfer Destination Chair Transfer Technique ambulated Transfer Ability Level of Assist Moderate Assistance,Maximum Assistance,1 Person Assistance ,Use of Upper Extremities Comments Mobility Comments completed supine to sit SBA. able to sit on EOB SBA. completed sit to stand mod A and cues. ambulated to the chair ~ 15 ft using FWW mod to max A and max cues for R quads activation. (+) R knee buckling and needed PT to stabilize R knee and max cues. pt sat on the chair. completed R quads sets and educated to do exercises. positioned pt on the chair. call ight and table placed within reach. Gait Assessment Gait Gait Assistance Required: Moderate Assistance,Maximum Assistance Distance (Feet) 15 Able to Maintain Weight Bearing Status Yes During Gait Assistive Devices Assistive Device Gait Belt,Front Wheeled Walker Orthotic/Prosthetic Devices or Brace: No Gait Deviations General Gait Pattern Decreased Stride Length, Decreased Feet Clearance,Step- to Gait Factors Limiting Gait Function Factors Limiting Gait Function Decreased Activity Tolerance, Decreased Strength,Limited Range of Motion,Pain,Poor Balance,Poor Safety Awareness PT-Balance Assessment Sitting Balance and Reactions Static Sitting Balance Ability Normal Dynamic Sitting Balance Ability Good Standing Balance and Reactions Static Standing Balance Ability Poor Dynamic Standing Balance Ability Poor Device Used FWW M5 PT-IP Objective Assessments Start: 02/23/22 13:15 Freq: NEEDED Status: Active Protocol: Document 02/23/22 10:30 AB (Rec: 02/23/22 13:24 AB [email or web address]) Orientation Orientation/Cognition Level of Alertness Alert Orientation Name,Place,Situation Language Function Ability Hard of Hearing Safety Awareness Decreased Safety Awareness Memory Description Short Term Impaired Gross Range of Motion Lower Extremity ROM Assessment Right Impaired Impairments R knee flexion: ~ 40 deg R knee extension: ~ 20 deg less to 0 Strength Lower Extremity Strength Assessment Right Impaired Hip 3+/5 Knee 3+/5 Sensation Assessment Sensation Gross Sensation WNL Muscle Tone Muscle Tone WNL Yes M6 PT-IP Treatment Start: 02/23/22 13:15 Freq: NEEDED Status: Active Protocol: Document 02/23/22 10:30 AB (Rec: 02/23/22 13:24 AB [email or web address]) Physical Therapy Treatment Education Education Provided Precautions,Weight Bearing Status,Post-Op Packet,Safety M7 PT-IP Assessment and Plan Start: 02/23/22 13:15 Freq: NEEDED Status: Active Protocol: Document 02/23/22 10:30 AB (Rec: 02/23/22 13:24 AB [email or web address]) PT Summary Assessment and Plan Potential Rehabilitation Potential Fair Status of Condition at Evaluation Evolving Summary Impairments Pain,ROM,Strength,Balance, Coordination,Sensation,Tone, Cognition,Bed Mobility, Transfers,Gait,Activity Tolerance Assessment Summary pt requiring mod to max A with ambulation using FWW and has (+) R knee buckling. will continue to assess progress. will conduct caregiver training when appropriate as well as stair climbing training. Goals Bed Mobility Goal Standby Assistance Transfer Goal Standby Assistance,Front Wheeled Walker Gait Goal Standby Assistance,Front Wheel Walker Gait Distance 150 Other Goals up/down 2 platform steps using FWW SBA Days to Meet Goals 10 Frequency of Treatment Frequency Of Treatment Twice a Day Treatment Plan Physical Therapy Treatment Plan Bed Mobility Training,Transfer Training,Gait Training, Therapeutic Exercise,Balance Retraining,Post Op Education, Discharge Planning,Hot or Cold Pack,Neuromuscular Re-ed, Coordination Retraining,Manual Therapy Weight Bearing Status Weight Bearing Status Weight Bear as Tolerated Allowed Weight Bearing Amount (enter % RLE WBAT or #) (%) Recommendations To Nursing Amount of Assist Needed 1 Person Assist Discharge Recommendations PT Discharge Recommendations Home with 26/02 Assist Available,Home Health,SNF Rehab,Home vs SNF Transportation Needs at Discharge Private Vehicle,Wheelchair/ Cabulance
[2022-02-23] MEDS: OXYCODONE IR 10 MG TABLET PO (13:35)
--- NOTE | 2022-02-23 14:10 | PT.IPTN ---
Current Diagnoses Thrombocytopenia, unspecified (02/22/22) Unilateral primary osteoarthritis, right knee (02/22/22) Surgery Performed Operation Date: 02/22/22 13:15 Actual Procedures p Total Knee Arthroplasty(Right) - Obie Hercules MD Physical Therapy Treatment Note M2 PT-IP Current Condition Start: 02/23/22 13:15 Freq: NEEDED Status: Active Protocol: Document 02/23/22 10:30 AB (Rec: 02/23/22 13:24 AB [email or web address]) Physical Therapy Current Condition Current Condition Evaluation Date 02/23/22 Treatment Diagnosis s/p R TKA; difficulty in walking Onset Date 02/22/22 M3 PT-IP Subjective Start: 02/23/22 13:15 Freq: NEEDED Status: Active Protocol: Document 02/23/22 14:10 AB (Rec: 02/23/22 17:13 AB [email or web address]) Subjective Physical Therapy Visit Type Type Treatment Note Visit Start Time 14:10 Visit Stop Time 15:05 Total Visit Minutes 55 Number of TAR POT WORKER Visits 0 Physical Therapy Visit Comments Patient Comments pt is agreeable to do PT. spouse in room with pt Therapy Pain Assessment Pain When Pain Assessed At Rest Pain Present Pain Present Pain Reported Location Rt knee Intensity 3 Scale Used Numeric (0 - 10) Pain Management Techniques Apply Cold,Distraction, Modification of Treatment,Re- positioning,Timing of Activity with Medications M4 PT-IP Mobility and Gait Start: 02/23/22 13:15 Freq: NEEDED Status: Active Protocol: Document 02/23/22 14:10 AB (Rec: 02/23/22 17:13 AB [email or web address]) PT-Bed Mobility Assessment Sit to Supine Sit to Supine Standby Assistance PT-Transfer Assessment Sit to and From Stand Sit to and from Stand Moderate Assistance,Maximum Assistance,1 Person Assistance ,Use of Upper Extremities Equipment Transfer Assistive Device Gait Belt,Front Wheeled Walker Orthotic/Prosthetic Devices or Brace: No Transfers Transfer Destination Bed Transfer Technique ambulated Transfer Ability Level of Assist Moderate Assistance,Maximum Assistance,1 Person Assistance ,Use of Upper Extremities Comments Mobility Comments completed seated heel slides prior to mobility. pt completed sit to stand from the chair mod to max A and max cues. ambulated in room ~ 15 ft using FWW max A and max cues for R quads activation. continues to have R knee buckling. Sat on edge of bed. spouse stated that she is worried on taking pt home and will want HHPT. informed spouse that before HHPT, pt needs to be able to get into the house first. Spouse is agreeable to do caregiver training. conducted caregiver training. educated spouse on how to use safety belt and how to assist and cue pt for quads contraction. spouse was able to put safety belt on. assisted pt with sit to stand. PT also assisting for safety and providing cues. pt ambulated to the chair using fWW with spouse assisting. spouse provided constant cues to pt to prevent R knee buckling. informed pt and spouse regarding SNF rehab at this time. Assessed if pt will be appropriate for stair climbing . completed single leg stance using FWW on RLE and completed max A with 10 sec hold. completed again with just 1 hand on FWW for support and able to hold RLE straight for ~ 10 sec. pt ambulated from chair mod to max A using FWW to platform step. completed up/down platform step using FWW max A and max cues. completed x 2 sets. pt ambulated back to his room ~ 15 ft mod to max A. completed sit to supine SBA. positioned in bed. call light and table placed within reach . Gait Assessment Gait Gait Assistance Required: Moderate Assistance,Maximum Assistance Distance (Feet) 15 Able to Maintain Weight Bearing Status Yes During Gait Assistive Devices Assistive Device Gait Belt,Front Wheeled Walker Orthotic/Prosthetic Devices or Brace: No Gait Deviations General Gait Pattern Antalgic,Decreased Stride Length,Decreased Feet Clearance Factors Limiting Gait Function Factors Limiting Gait Function Decreased Activity Tolerance, Decreased Strength,Difficulty Following Directions,Limited Range of Motion,Pain,Poor Balance,Poor Safety Awareness Stair Climbing Assessment Evaluation Level of Assist On Stairs Maximal Assistance,1 Person Assistance Devices Stair Climbing Assistive Devices Front Wheel Walker Technique/Endurance Stair Climbing Direction Ascend and Descend Stair Climbing Technique Step to Step Number of Steps Climbed 1 Stair Climbing Set # Repetitions (reps) 2 M5 PT-IP Objective Assessments Start: 02/23/22 13:15 Freq: NEEDED Status: Active Protocol: Document 02/23/22 10:30 AB (Rec: 02/23/22 13:24 AB [id number]) Orientation Orientation/Cognition Level of Alertness Alert Orientation Name,Place,Situation Language Function Ability Hard of Hearing Safety Awareness Decreased Safety Awareness Memory Description Short Term Impaired Gross Range of Motion Lower Extremity ROM Assessment Right Impaired Impairments R knee flexion: ~ 40 deg R knee extension: ~ 20 deg less to 0 Strength Lower Extremity Strength Assessment Right Impaired Hip 3+/5 Knee 3+/5 Sensation Assessment Sensation Gross Sensation WNL Muscle Tone Muscle Tone WNL Yes M6 PT-IP Treatment Start: 02/23/22 13:15 Freq: NEEDED Status: Active Protocol: Document 02/23/22 14:10 AB (Rec: 02/23/22 17:13 AB [id number]) Physical Therapy Treatment Exercises Exercises Heel Slides Education Education Provided Safety M7 PT-IP Assessment and Plan Start: 02/23/22 13:15 Freq: NEEDED Status: Active Protocol: Document 02/23/22 14:10 AB (Rec: 02/23/22 17:13 AB [id number]) PT Summary Assessment and Plan Potential Rehabilitation Potential Fair Summary Impairments Pain,ROM,Strength,Balance, Coordination,Sensation,Tone, Cognition,Bed Mobility, Transfers,Gait,Activity Tolerance Progress Towards Goals Slow Progress due to Medical Issues,Slow Progress due to Activity Tolerance Assessment Summary pt continue to require mod to max A with mobility using FWW and buckling on R knee requiring max cues with all tasks. initiated caregiver training to assess if spouse will be able to assist but at this time will nee further training. Pt will benefit from SNF rehab at this time but will continue to assess progress. Caregiver training set up for tomorrow again at 9 am. pt will also need HHPT if pt goes home. Goals Bed Mobility Goal Standby Assistance Transfer Goal Standby Assistance,Front Wheeled Walker Gait Goal Standby Assistance,Front Wheel Walker Gait Distance 150 Other Goals up/down 2 platform steps using FWW SBA Days to Meet Goals 10 Frequency of Treatment Frequency Of Treatment Twice a Day Treatment Plan Physical Therapy Treatment Plan Bed Mobility Training,Transfer Training,Gait Training, Therapeutic Exercise,Balance Retraining,Post Op Education, Discharge Planning,Hot or Cold Pack,Neuromuscular Re-ed, Coordination Retraining,Manual Therapy Weight Bearing Status Weight Bearing Status Weight Bear as Tolerated Allowed Weight Bearing Amount (enter % RLE WBAT or #) (%) Recommendations To Nursing Amount of Assist Needed 1 Person Assist Discharge Recommendations PT Discharge Recommendations Home with 26/02 Assist Available,Home Health,SNF Rehab,Home vs SNF Transportation Needs at Discharge Private Vehicle,Wheelchair/ Cabulance
[2022-02-23 16:07] VITALS: BP 130/66; PULSE 69; RESP 18; TEMP 36.8; O2SAT 98
[2022-02-23 19:50] VITALS: BP 137/67; PULSE 67; RESP 20; TEMP 37.7; O2SAT 98
[2022-02-24] MEDS: OXYCODONE IR 5 MG TABLET PO ×2 (03:30→06:59)
[2022-02-24 03:50] VITALS: BP 140/68; PULSE 69; RESP 14; TEMP 37.2; O2SAT 96
[2022-02-24 08:43] VITALS: BP 143/73; PULSE 74; RESP 16; TEMP 37.2; O2SAT 97
[2022-02-24] MEDS: DOCUSATE 100 MG CAPSULE PO (09:44)
[2022-02-24] MEDS: OXYCODONE IR 10 MG TABLET PO (09:44)
--- NOTE | 2022-02-24 09:45 | PT.IPTN ---
Current Diagnoses Thrombocytopenia, unspecified (02/23/22) Unilateral primary osteoarthritis, right knee (02/23/22) Surgery Performed Operation Date: 02/22/22 13:15 Actual Procedures p Total Knee Arthroplasty(Right) - Obie Hercules MD Physical Therapy Treatment Note M2 PT-IP Current Condition Start: 02/23/22 13:15 Freq: NEEDED Status: Active Protocol: Document 02/23/22 10:30 AB (Rec: 02/23/22 13:24 AB [email or web address]) Physical Therapy Current Condition Current Condition Evaluation Date 02/23/22 Treatment Diagnosis s/p R TKA; difficulty in walking Onset Date 02/22/22 M3 PT-IP Subjective Start: 02/23/22 13:15 Freq: NEEDED Status: Active Protocol: Document 02/24/22 09:00 KS (Rec: 02/24/22 11:31 KS [id number]) Subjective Physical Therapy Visit Type Type Treatment Note Visit Start Time 09:00 Visit Stop Time 09:45 Total Visit Minutes 45 Notes Spouse present for continued caregiver training. Number of GARDEN LABOURER Visits 1 Physical Therapy Visit Comments Patient Comments pt is agreeable to do PT. spouse in room with pt Therapy Pain Assessment Pain When Pain Assessed After Treatment Pain Present Pain Present Pain Reported Location Rt knee Intensity 5 Scale Used Numeric (0 - 10) Pain Management Techniques Elevation,Re-positioning M4 PT-IP Mobility and Gait Start: 02/23/22 13:15 Freq: NEEDED Status: Active Protocol: Document 02/24/22 09:00 KS (Rec: 02/24/22 11:31 KS [id number]) PT-Bed Mobility Assessment Supine to Sit Supine to Sit Standby Assistance Scooting Scooting to Edge of Bed Contact Guard Assistance PT-Transfer Assessment Sit to and From Stand Sit to and from Stand Minimal Assistance,1 Person Assistance,Use of Upper Extremities Equipment Transfer Assistive Device Gait Belt,Front Wheeled Walker Orthotic/Prosthetic Devices or Brace: No Transfers Transfer Destination Bed,Chair Transfer Technique ambulated Transfer Ability Level of Assist Minimal Assistance,1 Person Assistance,Use of Upper Extremities Comments Mobility Comments Pt in bed w/ spouse in room upon arrival for continued caregiver training. Pt SBA for sup<>sit, CGA for scooting EOB. Pts had poor carryover of gait belt application and required tactile cues to apply gait belt to pt. She also required verbal and tactile cues to secure FWW and assist pt w/ sit<>Stand. Pt sit<>stand Min A w/ FWW. Pts able to remind pt to activate R quads when standing. Pt ambulated to hallway and platform step w/ FWW and CGA to Min A for cues and FWW management. He performed 2x platform steps w/ FWW. Pt w/ better carryover of step sequencing than his who required max cues of how to assist pt and secure FWW. Pt reported fatigue and returned to bed for seated rest break. He then ambulated to platform step and completed again this time w/ providing cues and assist. Pt returned to room and chair. Reveiwed ther ex, discussed home safety, and HHPT vs OPPT. Pt left in chair w/ all needs in reach. Gait Assessment Gait Gait Assistance Required: Minimum Assistance,1 Person Assist Distance (Feet) 40 Able to Maintain Weight Bearing Status Yes During Gait Assistive Devices Assistive Device Gait Belt,Front Wheeled Walker Orthotic/Prosthetic Devices or Brace: No Gait Deviations General Gait Pattern Antalgic,Decreased Stride Length,Decreased Feet Clearance Factors Limiting Gait Function Factors Limiting Gait Function Decreased Activity Tolerance, Decreased Strength,Difficulty Following Directions,Limited Range of Motion,Pain,Poor Balance,Poor Safety Awareness Comments Gait Comments Frequent cues for R quad facilitation to avoid R knee buckling and FWW management - pt picking up FWW rather than pushing to advance. Stair Climbing Assessment Evaluation Level of Assist On Stairs Minimal Assistance,1 Person Assistance Devices Stair Climbing Assistive Devices Front Wheel Walker Technique/Endurance Stair Climbing Direction Ascend and Descend Stair Climbing Technique Step to Step Number of Steps Climbed 1 Stair Climbing Set # Repetitions (reps) 3 Comments Stair Climbing Comments Pt able to ascend/descend 3 platform step w/ FWW and Min A . Pts required training on how to correctly assist pt, but by third attempt she was successful. Pts confirms she has a chair pt can take seated rest break in if needed when ascending 4 platform steps into home. PT-Balance Assessment Sitting Balance and Reactions Static Sitting Balance Ability Normal Dynamic Sitting Balance Ability Good Standing Balance and Reactions Static Standing Balance Ability Fair Dynamic Standing Balance Ability Fair Device Used FWW M5 PT-IP Objective Assessments Start: 02/23/22 13:15 Freq: NEEDED Status: Active Protocol: Document 02/23/22 10:30 AB (Rec: 02/23/22 13:24 AB [id number]) Orientation Orientation/Cognition Level of Alertness Alert Orientation Name,Place,Situation Language Function Ability Hard of Hearing Safety Awareness Decreased Safety Awareness Memory Description Short Term Impaired Gross Range of Motion Lower Extremity ROM Assessment Right Impaired Impairments R knee flexion: ~ 40 deg R knee extension: ~ 20 deg less to 0 Strength Lower Extremity Strength Assessment Right Impaired Hip 3+/5 Knee 3+/5 Sensation Assessment Sensation Gross Sensation WNL Muscle Tone Muscle Tone WNL Yes M6 PT-IP Treatment Start: 02/23/22 13:15 Freq: NEEDED Status: Active Protocol: Document 02/24/22 09:00 KS (Rec: 02/24/22 11:31 KS [id number]) Physical Therapy Treatment Education Education Provided Safety Other Treatments Other Treatment Performed Caregiver training M7 PT-IP Assessment and Plan Start: 02/23/22 13:15 Freq: NEEDED Status: Active Protocol: Document 02/24/22 09:00 KS (Rec: 02/24/22 11:31 KS [id number]) PT Summary Assessment and Plan Potential Rehabilitation Potential Fair Summary Impairments Pain,ROM,Strength,Balance, Coordination,Sensation,Tone, Cognition,Bed Mobility, Transfers,Gait,Activity Tolerance Progress Towards Goals Slow Progress due to Medical Issues,Slow Progress due to Activity Tolerance Assessment Summary Able to complete caregiver w/ pts however she had poor carryover of training that was initiated yesterday by PT. Pt increased ambulation distance and ascended/descended 3 steps, but is limited by low activity tolerance and weakness and needs frequent cues to use FWW correctly. Pt and feel safe to go home, but will require HHPT to improve safety, strength, stability, and functional mobility independence. Goals Bed Mobility Goal Standby Assistance Transfer Goal Standby Assistance,Front Wheeled Walker Gait Goal Standby Assistance,Front Wheel Walker Gait Distance 150 Other Goals up/down 2 platform steps using FWW SBA Days to Meet Goals 10 Frequency of Treatment Frequency Of Treatment Twice a Day Treatment Plan Physical Therapy Treatment Plan Bed Mobility Training,Transfer Training,Gait Training, Therapeutic Exercise,Balance Retraining,Post Op Education, Discharge Planning,Hot or Cold Pack,Neuromuscular Re-ed, Coordination Retraining,Manual Therapy Weight Bearing Status Weight Bearing Status Weight Bear as Tolerated Allowed Weight Bearing Amount (enter % RLE WBAT or #) (%) Recommendations To Nursing Amount of Assist Needed 1 Person Assist Discharge Recommendations PT Discharge Recommendations Home with 26/02 Assist Available,Home Health,SNF Rehab,Home vs SNF Transportation Needs at Discharge Private Vehicle
[2022-02-24] MEDS: FUROSEMIDE 20 MG TABLET PO (09:46)
[2022-02-24] MEDS: ASPIRIN EC 81 MG TABLET PO (09:46)
[2022-02-24 11:19] LABS: Add Manual Diff / Slide Review NO; Basophils Absolute Auto 0 /uL (0-100); Basophils Percent Auto 0.1 % (0-2); Eosinophils Absolute Auto 100 /uL (0-450); Eosinophils Percent Auto 1.2 % (2-4); Hematocrit 27.3 % (41-53); Hemoglobin 9.6 g/dL (13.5-17.5); Lymphocytes Absolute Auto 200 /uL (1100-4500); Lymphocytes Percent Auto 5.2 % (25-40); Mean Corpuscular HGB Conc 35.1 % (30-36); Mean Corpuscular Hemoglobin 34.8 PG (26-34); Mean Corpuscular Volume 99.2 fL (80-100); Monocytes Absolute Auto 600 /uL (0-900); Monocytes Percent Auto 14.6 % (3-14); Neutrophils Absolute Auto 3400 /uL (1500-7000); Neutrophils Percent Auto 78.9 % (50-75); Platelet Count 62 X10^3/uL (150-400); Red Blood Cell Count 2.76 X10^6/uL (4.5-5.9); Red Cell Distribution Width 13.9 % (11.6-14.8); White Blood Cell Count 4.3 X10^3/uL (4.5-11.0)
--- NOTE | 2022-02-24 12:14 | CM.DPNOTE ---
Faxed referral to [facility] per Janina. Susan Cerda CM Assist.
--- NOTE | 2022-02-24 14:05 | PC.NURSE ---
Discharge: Pt feels ready to d/c to home. Seen by PA and given d/c instructions. Seen by PT and given d/c instructions, spouse her and she feels comfortable caring for him at home. Diet josafat w/out problems. PO pain medication has been effective, has been able to void. D/c packet given and reviewed. RX has been esent. Questions answered. Pt dc to home via auto with spouse.
--- NOTE | 2022-02-24 15:56 | CM.DPNOTE ---
DC Note Patient discharged home today, cleared by PT and requesting HH RN/PT, met w/patient and spouse Anisha to discuss. Provided MCR choice list. No preference. ASHLEY Davis, kindly faxed referral to [facility] based on soonest availability. Plan: Home w/family to assist and [facility]; Patient and spouse remained agreeable to plan JW
== END 2022-02-24 12:30 | disposition home or self-care (01) ==
LOC: OR 02-24 00:14 → AC 02-24 00:14
PROVIDERS: Physician Assistant; Admitting Provider Orthopaedic Surgery; Family Provider Internal Medicine; PCP Internal Medicine; Referring Provider Orthopaedic Surgery; Visit Provider Orthopaedic Surgery
PROC: 0SRC0JZ Replacement of Right Knee Joint with Synthetic Substitute, Open Approach (ICD-10-PCS; CPT 27447; principal; 2022-02-22 13:15)
DX: M17.11 Unilateral primary osteoarthritis, right knee (principal); D69.6 Thrombocytopenia, unspecified; G47.33 Obstructive sleep apnea (adult) (pediatric); Z20.822 Contact with and (suspected) exposure to COVID-19
CPT/HCPCS: 27447; 01402; 36415; 36430; 73560; 85014; 85018; 85025; 86900; 86901; 97116; 97162; 97530; C1776; G0378; P9016; C1713; C9290; J0171; J0690; J2250; J2270; J2274; J2704; J3010; P9035

== ENCOUNTER → 2022-03-06 10:11 | Outpatient (CLI) | payer OTHER, SELFPAY ==
[2022-02-22 21:44] VITALS: BMI 30.4
--- NOTE | 2022-03-06 | DI.US.S_ITS ---
PROCEDURE: US PERIPH VENOUS LOW EXTREM RT INDICATIONS: Right leg swelling TECHNIQUE: Real-time imaging, as well as color and pulse Doppler interrogation, were performed of the lower extremity deep veins from the inguinal ligament to the popliteal fossa. COMPARISON: None. FINDINGS: The common femoral, femoral and popliteal veins are normally compressible, and free of intraluminal thrombus. Color and pulse Doppler demonstrate normal phasic intraluminal flow. There is normal augmentation response to distal compression maneuver. IMPRESSION: Negative for deep venous thrombosis. Dictated by: Mark Dickens M.D. on 03/06/2022 at 11:54 Approved by: Mark Dickens M.D. on 03/06/2022 at 11:55
== END ==
PROVIDERS: Family Provider Internal Medicine; PCP Internal Medicine; Referring Provider Orthopaedic Surgery; Visit Provider Orthopaedic Surgery
DX: M79.89 Other specified soft tissue disorders (principal)
CPT/HCPCS: 93971

== ENCOUNTER → 2022-11-08 09:48 | Outpatient (CLI) | payer OTHER, SELFPAY ==
[2022-02-22 21:44] VITALS: BMI 30.4
--- NOTE | 2022-11-08 | DI.NM.S_ITS ---
PROCEDURE: NM BONE SCAN WHOLE BODY RADIOPHARMACEUTICAL: 22.0 mCi Tc-99m MDP IV. INDICATIONS: Pain in right hip TECHNIQUE: Delayed whole-body scintigrams were obtained approximately 3-4 hours after intravenous injection of radiotracer. Anterior and posterior views were acquired from vertex to feet. Additional left and right oblique views of the pelvis and hips were obtained. COMPARISON: CR, XR KNEE RT 1TO2V, 02/22/2022, 17:27. [facility], CR, XR PELVIS WITH LATERAL HIP RIGHT, 10/12/2022, 14:07. FINDINGS: There are bilateral hip arthroplasties and right knee arthroplasty. Low-level increased activity around knee prosthesis is seen, left greater than right, most compatible with postsurgical change. No definitive scintigraphic findings to suggest right hip prosthesis loosening No lesions are identified in skull, sternum, clavicles, scapulae, ribs, bony pelvis, and visualized shafts of the long bones. There are foci of increased uptake in cervical, thoracic and lumbar spine most likely secondary to degenerative disc and facet disease; early metastasis to spine could be obscured by degenerative changes. There are foci of increased periarticular activity most pronounced in right shoulder compatible with degenerative/arthritic changes. IMPRESSION: 1. Postsurgical changes in hips and right knee compatible with radiographic findings of arthroplasties. No scintigraphic findings to suggest prosthesis loosening or infection. 2. 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 Dictated by: Vishal Jain M.D. on 11/08/2022 at 15:04 Approved by: Vishal Jain M.D. on 11/08/2022 at 15:08
== END ==
PROVIDERS: Family Provider Internal Medicine; PCP Internal Medicine; Referring Provider Orthopaedic Surgery; Visit Provider Orthopaedic Surgery
DX: M25.551 Pain in right hip (principal); Z96.643 Presence of artificial hip joint, bilateral; Z96.651 Presence of right artificial knee joint
CPT/HCPCS: 78306; A9503

== ENCOUNTER → 2022-12-30 09:30 | Outpatient (CLI) | payer OTHER, SELFPAY ==
[2022-02-22 21:44] VITALS: BMI 30.4
--- NOTE | 2022-12-30 09:32 | DI.MRI.S_ITS ---
PROCEDURE: MR HIP RT WO CON INDICATIONS: Presence of artificial hip joint, bilateral TECHNIQUE: Noncontrast coronal T1 spin echo and STIR through the bony pelvis. Coronal and axial T2 fast spin echo with fat saturation, sagittal T1 spin echo, and oblique axial T2 fast spin echo with fat saturation through the hip. COMPARISON: [facility], CR, XR PELVIS WITH LATERAL HIP RIGHT, 10/12/2022, 14:07. FINDINGS: Image quality: Degraded by bilateral hip arthroplasty artifact. Bones and joints: Bilateral hip arthroplasty has been performed. Bone marrow of the pelvic ring and proximal femurs show normal signal throughout. No intraosseous lesions or fractures. No avascular necrosis of the femoral heads. The visualized lower lumbar spine appears normally aligned. Tendons and ligaments: The gluteus medius and minimus tendons appear intact, without associated muscle atrophy. The nearby proximal iliotibial band also appears intact. The iliopsoas tendon appears intact, without adjacent bursal fluid collections or evidence for impingement syndrome. The origin of the hamstring tendon is intact at the ischial tuberosity, as well as the associated sacrotuberous ligament. Moderate T2 signal elevation within the proximal hamstring tendon. The straight and reflected heads of the rectus femoris muscle origin appear intact, as well as the conjoint tendon. The ligamentum teres appears intact where visualized. Labrum and cartilage: The acetabular labrum appears intact in the absence of intra-articular contrast. Cartilage surface of the femoral head appears of normal thickness. The alpha angle of the femur is within normal limits at less than 55 degrees. Soft tissues: Visualized muscles demonstrate normal bulk and internal signal. Quadratus femoris muscle demonstrates no internal edema to suggest ischiofemoral impingement. The proximal sciatic neurovascular bundle appears normal adjacent to the hamstring tendons. No free pelvic fluid. Bladder wall thickness is normal. Genitourinary structures and bowel loops appear normal where visualized. IMPRESSION: 1. Bilateral hip arthroplasty. 2. Right hamstring tendinopathy. Dictated by: Kervin Watson M.D. on 01/02/2023 at 10:41 Approved by: Kervin Watson M.D. on 01/02/2023 at 10:43
== END ==
PROVIDERS: Family Provider Internal Medicine; PCP Internal Medicine; Referring Provider Orthopaedic Surgery; Visit Provider Orthopaedic Surgery
DX: Z96.643 Presence of artificial hip joint, bilateral (principal)
CPT/HCPCS: 73721